=== PATIENT | female | born 1955 | race African-American/Black ===

== ENCOUNTER → 2017-10-12 | Outpatient (CLI) | payer OTHER ==
[2014-11-18 05:48] VITALS: BP 153/89
--- NOTE | 2017-10-12 13:31 | MRI ---
MRI SPINE LUMBAR WITHOUT CONTRAST CLINICAL HISTORY: 62-year-old female with chronic low back pain. COMPARISON: Radiographs of lumbar spine 01/26/2014.. Technique: Multiplanar, multisequence MRI images of the lumbar spine were obtained without the admin istration of contrast. FINDINGS: The most caudad, fully-formed intervertebral disc will be labeled L5-S1 for the purpose of this dictation and in keeping with prior imaging. There is normal lumbar lordosis. Degenerative anter olisthesis L4-L5. Patient is status post spinous process fusion L4-L5 with L4-L5 interbody cage. Fusi on construct produces susceptibility artifact that precludes complete evaluation of the immediately a djacent structures. Vertebral body heights are overall preserved with type 2 endplate changes L4-L5 w ith complete loss of disc space. There is loss of disc space T11-12 with type 2 endplate changes ante riorly. There is loss of disc signal from L3-S1. Cord signal is normal. The conus medullaris is lisa l in signal characteristics and morphology and terminates at the L1-2 level. T11-T12: Moderate symmetric disc bulge and mild facet arthropathy without central canal or neural for aminal T12-L1: Stenosis. Small symmetric disc bulge and moderate facet arthropathy without central canal or neural foraminal stenosis. L1-L2: Small symmetric disc bulge with moderate facet arthropathy without central canal or neural for aminal stenosis. L2-L3: Moderate symmetric disc bulge with severe facet arthropathy without central canal or neural fo raminal stenosis. L3-L4: Large symmetric disc bulge with severe facet arthropathy and prominent epidural fat concentric ally narrowed canal to 8.8 mm. Mild right and moderate left neural foraminal stenosis with flattening of the dorsal aspect of the exiting L3 nerve roots bilaterally. L4-L5: Severe facet arthropathy without central canal or neural foraminal stenosis. L5-S1: Severe facet arthropathy with small symmetric disc bulge without central canal or neural dipika inal stenosis. Bilateral simple appearing renal cysts. Paraspinous soft tissues otherwise unremarkable. IMPRESSION: 1. Status post spinous process fusion L4-L5 with interbody cage. No evidence of hardware failure. 2. Multilevel disc degeneration and spondyloarthropathy most severe at L3-L4. 3. See level by level descriptions above. Reported By:
--- NOTE | 2017-10-12 15:09 | MRI ---
History: Left knee osteoarthritis, left knee pain and swelling. Technique: Multiplanar, multi sequence MR imaging of the left knee was performed without IV contrast. Comparison:NONE Findings: The anterior cruciate and posterior cruciate ligaments are intact. The medial and the lateral menisci appear intact. The medial collateral ligament is intact. The iliotibial band, fibular collateral ligament, biceps fe wesley tendon are intact. Popliteus is intact. There is a small amount of fluid signal within the pes anserine bursa suggesting mild bursitis. Tendons of the gastrocnemius, semimembranosus and pes anseri nus appear intact. There is mild circumferential subcutaneous edema, nonspecific. The quadriceps tendon is intact. There is fluid within the superficial infrapatellar bursa consistent with bursitis. There is no significant knee effusion demonstrated. The patella is of normal morphology without significant tilt or subluxation. There is grade 3 chondro malacia along the superior aspect of the lateral patellar facet with mild subcortical cystic change. There is grade 3 chondromalacia along the median patellar ridge. Medial and lateral patella retinacul a are intact. There is edema within the superolateral aspect of Hoffa's fat pad. The patellar tendon drapes over the lateral femoral condyles superiorly where the tendon appears somewhat thinned, with e anand noted deep to it. Findings suggest patellar tendon-lateral femoral condyle friction syndrome. There is mild tricompartmental osteoarthrosis. There is grade 3 chondral disease along the posterior aspects of the femoral condyles. There is mild subcortical edema within the posterior lateral femoral condyle. Impression: 1. Findings consistent with mild patellar tendon-lateral femoral condyle friction syndrome. The huang lar tendon appears mildly thinned as it drapes over the lateral condyles anteriorly. In addition ther e is mild edema within superolateral Hoffa's fat pad suggesting fat pad impingement. 2. Superficial infrapatellar bursitis 3. Mild tricompartmental osteoarthrosis as described above 4. Mild pes anserine bursitis. 5. Mild subcutaneous edema. 6. Other findings as above. Reported By:
--- NOTE | 2017-10-12 15:15 | MRI ---
History: Right knee osteoarthritis. Right knee pain and swelling Technique: Multiplanar, multi sequence MR imaging of the right knee was performed without IV contrast . Comparison:NONE Findings: The anterior cruciate and posterior cruciate ligament are intact. The medial and lateral menisci are intact. The medial collateral ligament is intact. The iliotibial band, fibular collateral ligament, biceps fe wesley tendon are intact. The popliteus is intact. The tendons of the gastrocnemius, cirrhosis and pes anserinus are intact. There is a small amount of fluid signal within the pes anserine bursa suggesti ng mild bursitis. There is circumferential subcutaneous edema, most prominent along the anterior late ral aspect of the proximal tibia. The quadriceps tendon is intact. The patellar tendon is thinned as it drapes over the anterior latera l femoral condyle, with subjacent edema. Findings are consistent with patellar tendon-lateral condyle friction syndrome and a partial thickness patellar tendon tear. There is edema within the superolate ral aspect of Hoffa's fat pad consistent with fat pad impingement. There is no significant knee effus ion. There is grade 3/grade 4 chondromalacia along the lateral patellar facet with mild subcortical marrow edema and cystic change. There is subcortical marrow edema and cystic change along the anterior aspe ct of the medial femoral condyle, with overlying full-thickness chondral fissuring best seen on sagit gurwinder T2 fat-sat images and sagittal PD fat-sat images. There is mild tricompartmental osteoarthrosis. There is superficial infrapatellar bursitis. There is mild thickening of the patellar tendon consiste nt with patellar tendinosis. Impression: 1. Findings consistent with patellar tendon-lateral femoral condyle friction syndrome and a partial t hickness patellar tendon tear 2. Edema within the superolateral aspect of Hoffa's fat pad consistent with fat pad impingement. Bambi elate for a patellofemoral tracking disorder. 3. Grade 3/grade 4 chondromalacia patella. There is mild tricompartmental osteoarthrosis. There is gr tyesha 3/grade 4 chondral disease along the anterior medial femoral condyle. 4. Nonspecific subcutaneous edema most prominent along the anterolateral aspect of the proximal tibia 5. Mild superficial infrapatellar bursitis. 6. Mild pes anserine bursitis 7. Other findings as above. Reported By:
== END ==
LOC: RAD 09:32
PROVIDERS: ATTEND Internal Medicine
DX: M51.36 Other intervertebral disc degeneration, lumbar region (principal); M17.0 Bilateral primary osteoarthritis of knee
CPT/HCPCS: 72148; 73721